=== PATIENT | female | born 1945 | race Caucasian/White ===

== ENCOUNTER 2016-11-26 09:51 | Outpatient (CLI) ==
--- NOTE | 2016-11-26 10:41 | CT ---
EXAM: CT chest without contrast HISTORY: Chest wall pain on the right post fall 1 week prior. Patient with history of cholecystecto my COMPARISON: Chest x-ray 05/23/2013 TECHNIQUE: Serial axial images of the chest were obtained from the lung apices to the upper abdomen without contrast. These were viewed in multiple planes. 3-D reconstructions of the bones were perfor med. FINDINGS: The thyroid is normal. The visualized vessels are unremarkable without aneurysm or stenos is. The heart is normal in size without pericardial effusion. There are no pathologically enlarged mediastinal or hilar lymph nodes. Calcified right hilar lymph node is present. There is no pneumothorax or pleural effusion. There is trace ground-glass in the right upper lobe on image 21. There is calcifications in the right lower lobe on image 25. There is mild bibasilar are atelectasis and minimal bronchiectasis. There is a 0.3 cm ground-glass nodule in the right lower lo be on image 34. There is mild consolidation in the lingula. There is a 0.2 cm nodule in the left lo wer lobe on image 27. Osseous structures are unremarkable with no visualized rib fracture or compression abnormality. The soft tissues in the upper abdomen is very limited with evidence of prior cholecystectomy and gastric surgery. IMPRESSION: 1. No CT abnormality or acute cardiopulmonary process to account for patient's symptoms. 2. Scattered small pulmonary nodules are likely postinflammatory with minimal bibasilar atelectasis and bronchiectasis. 3. Sequela of old granulomatous disease. 4. No acute osseous abnormality. 5. Changes of gastric surgery and cholecystectomy in the upper abdomen.
== END 2016-11-26 09:52 | disposition home or self-care (01) ==
LOC: RAD 09:51
PROVIDERS: ATTEND Family Medicine
DX: R07.89 Other chest pain (principal)
CPT/HCPCS: 93005; 93010

== ENCOUNTER 2017-02-14 15:31 | Outpatient (CLI) ==
--- NOTE | 2017-02-14 16:20 | DI ---
EXAM: Chest two view, frontal and lateral views. HISTORY: Cough. COMPARISON: 11/26/2016. FINDINGS: The heart size is normal. Aortic atherosclerotic calcifications present. There is no pul monary vascular congestion. Calcified granulomatous changes noted. Focal scarring in the lingula ag ain noted. Otherwise, the lungs are clear. No pleural effusion or pneumothorax is seen. No acute o sseous abnormality identified. Since the prior study, there has been no significant interval change. IMPRESSION: No acute cardiopulmonary process.
== END 2017-02-14 15:32 | disposition home or self-care (01) ==
LOC: RAD 15:31
PROVIDERS: ATTEND Family Medicine
DX: R05 Cough (principal)

== ENCOUNTER 2017-08-03 06:01 | Inpatient (IN) ==
--- NOTE | 2017-08-03 06:28 | ED.PDOC ---
General Stated Complaint: it hurts to take a deep breathe Time Seen by Physician: 06:10 Mode of Arrival: Wheelchair Information Source: Patient Exam Limitations: No limitations Nursing and Triage Documentation Reviewed and Agree: Yes Reviewed sepsis parameters & appropriate labs ordered?: Yes System Inflammatory Response Syndrome: Not Applicable <MARIANGELCARLOS - Last Filed: 08/03/17 06:45> <JESSICA WONG - Last Filed: 08/03/17 08:18> ED Provider: Dr. JESSICA WONG Chief Complaint: Chest Pain Primary Care Provider: CARLOS THOMPSON Sepsis Protocol: For patient's 13 years and over: Temp is 96.8 and below OR 101 and greater Pulse >90 BPM Resp >20/minute Acutely Altered Mental Status Are patient's symptoms suggestive of a new infection, such as: -Pneumonia -Skin, Soft Tissue -Endocarditis -UTI -Bone, Joint Infection -Implantable Device -Acute Abdominal Infection -Wound Infection -Meningitis -Blood Stream Catheter Infection -Unknown Cardiovascular Complaint Exam - Chest Pain Complaint/Exam Onset: Gradual Duration: 24hrs Symptoms Are: Still present Timing: Intermittent Initial Severity: Moderate Location: Reports: Discrete, Left anterior, Left lateral Character: Reports: Sharp, Stabbing Aggravating: Reports: Deep breaths Alleviating: Reports: None Associated Signs and Symptoms: Denies: Diaphoresis, Nausea, Vomiting, Fever, Palpitations, Cough, Hemoptysis, Back pain, Abdominal pain, Dizziness, Short of air, Calf pain, Calf swelling Related Surgical History: Reports: None History of Healthcare-Acquired Pneumonia: Reports: No AMI/ACS Risk Factors: Reports: Sedentary, Diabetes, Obesity TAD Risk Factors: Reports: Hypertension Prior Care for this Complaint: No Recent Stress Test: No Recent Echo/LV Function: No JVD Present: No Subcutaneous Emphysema Present: No Diminshed Breath Sounds: No Reproducible Chest Wall Pain: No Bilateral Pulses Present: Yes Unequal Pulses Noted: No If Risk Factors for AMI/ACS Consider: EKG, Cardiac Enzymes, Serial Studies, Oxygen, Aspirin Quality Indicator For Non-Traumatic Chest Pain/Syncope: EKG Performed <CARLOS AUGUST - Last Filed: 08/03/17 06:45> Review of Systems - Review Of Systems Constitutional: Reports: No symptoms Eyes: Reports: No symptoms Ears, Nose, Mouth, Throat: Reports: No symptoms Respiratory: Reports: No symptoms Cardiac: Reports: Chest pain GI: Reports: No symptoms : Reports: No symptoms Musculoskeletal: Reports: No symptoms Skin: Reports: No symptoms Neurological: Reports: No symptoms Endocrine: Reports: No symptoms Hematologic/Lymphatic: Reports: No symptoms All Other Systems: Reviewed and Negative <CARLOS AUGUST Last Filed: 08/03/17 06:45> Past Medical History - Past Medical History Previously Healthy: No Endocrine: Reports: DM 2, Dyslipidemia Cardiovascular: Reports: A-Fib Respiratory: Reports: COPD Hematological: Reports: Anemia Gastrointestinal: Reports: None Genitourinary: Reports: CKD Neuro/Psych: Reports: None Musculoskeletal: Reports: Arthritis Cancer: Reports: None Last Menstrual Period: menopausal - Surgical History General Surgical History: Reports: Unknown - Family History Family History: Reports: Unknown - Social History Smoking Status: Former smoker Hx Substance Use: No Alcohol Screening: None - Immunizations Tetanus Shot up to Date: No (unsure) <CARLOS AUGUST Last Filed: 08/03/17 06:45> Physical Exam - Physical Exam Appearance: Well-appearing Pain Distress: Mild Eyes: ESME, EOMI, Conjunctiva clear ENT: Ears normal, Nose normal, Oropharynx normal Neck: Supple Respiratory: Airway patent, Breath sounds clear, Breath sounds equal, Respirations nonlabored Cardiovascular: RRR, Pulses normal, No rub, No murmur GI/: Soft, Nontender, No masses, Bowel sounds normal, No Organomegaly Musculoskeletal: Normal strength, ROM intact, No edema, No calf tenderness Skin: Warm Neurological: Sensation intact Psychiatric: Affect appropriate, Mood appropriate <MARIANGELCARLOS Last Filed: 08/03/17 06:45> Physician Notification - Case Discussed Physician Notified: dr wong Time of Notification: 07:00 <MARIANGELCARLOS Last Filed: 08/03/17 06:45> - Case Discussed Physician Notified: PMD Time of Notification: 08:18 (ADMITT) Admit To: Inpatient <JESSICA WONG Last Filed: 08/03/17 08:18> Critical Care Note - Critical Care Note Total Time (mins): 0 <JESSICA WONG Filed: 08/03/17 08:18> Course - Course Hematology/Chemistry: 08/03/17 06:30 08/03/17 06:30 <JESSICA WONG Filed: 08/03/17 08:18> - Course Orders, Labs, Meds: Lab Review 08/03/17 08/03/17 08/03/17 06:30 06:30 06:30 WBC 9.65 RBC 3.57 L Hgb 7.7 L Hct 28.4 L MCV 79.6 L MCH 21.6 L MCHC 27.1 L RDW Coeff of Claudia 16.8 H Plt Count 305 Immature Gran % (Auto) 0.5 Neut % (Auto) 61.1 Lymph % (Auto) 22.0 [place] % (Auto) 10.5 H Eos % (Auto) 5.4 Baso % (Auto) 0.5 Immature Gran # (Auto) 0.1 Neut # (Auto) 5.9 Lymph # (Auto) 2.1 [place] # (Auto) 1.0 Eos # (Auto) 0.5 Baso # (Auto) 0.1 Hypochromasia 3+ Anisocytosis Not present Microcytosis 1+ PT 19.0 H INR 1.94 D-Dimer (Manual) Sodium 143 Potassium 4.0 Chloride 100 Carbon Dioxide 33 H Anion Gap 14.0 BUN 11 Creatinine 0.79 Estimated GFR (MDRD) 72.00 BUN/Creatinine Ratio 13.92 Glucose 126 H Calcium 9.0 Total Bilirubin 0.4 AST 21 ALT 8 L Alkaline Phosphatase 97 Total Creatine Kinase 34 Troponin I < 0.0100 Total Protein 6.5 Albumin 2.7 L Globulin 3.8 Albumin/Globulin Ratio 0.71 08/03/17 06:30 WBC RBC Hgb Hct MCV MCH MCHC RDW Coeff of Claudia Plt Count Immature Gran % (Auto) Neut % (Auto) Lymph % (Auto) [place] % (Auto) Eos % (Auto) Baso % (Auto) Immature Gran # (Auto) Neut # (Auto) Lymph # (Auto) [place] # (Auto) Eos # (Auto) Baso # (Auto) Hypochromasia Anisocytosis Microcytosis PT INR D-Dimer (Manual) 590.01 Sodium Potassium Chloride Carbon Dioxide Anion Gap BUN Creatinine Estimated GFR (MDRD) BUN/Creatinine Ratio Glucose Calcium Total Bilirubin AST ALT Alkaline Phosphatase Total Creatine Kinase Troponin I Total Protein Albumin Globulin Albumin/Globulin Ratio Orders Category Date Time Status EKG-(ED ONLY) Stat CARDIO 08/03/17 06:03 Completed EKG-(IP & OP ONLY) DAILY CARDIO 08/04/17 06:00 Ordered EKG-(IP & OP ONLY) DAILY CARDIO 08/05/17 06:00 Ordered EKG-(IP & OP ONLY) DAILY CARDIO 08/06/17 06:00 Ordered NEBULIZER TREATMENT Routine CARDIO 08/03/17 08:11 Ordered OXYGEN Routine CARDIO 08/03/17 08:15 Ordered ACTIVITY .Complete BR CARE 08/03/17 08:09 Ordered INTAKE & OUTPUT Q8HR CARE 08/03/17 08:09 Ordered NPO REMINDER: IMAGING ONCE CARE 08/03/17 08:07 Ordered VITAL SIGNS Q4HR CARE 08/03/17 08:09 Ordered REGULAR DIET DIETARY 08/03/17 Lunch Ordered Ore Dressing Engineer [ED TABLE LEVER OPERATOR APPLIED] .ONCE EMERGENCY 08/03/17 06:04 Active IV [ED IV/MEDIPORT/POWERPORT] .ONCE EMERGENCY 08/03/17 06:04 Active BLOOD CULTURE (ED ONLY) Stat LAB 08/03/17 06:30 Received CBC W/ AUTO DIFF DAILY@0600 LAB 08/04/17 06:00 Ordered CBC W/ AUTO DIFF DAILY@0600 LAB 08/05/17 06:00 Ordered CBC W/ AUTO DIFF Stat LAB 08/03/17 06:30 Completed COMPREHENSIVE METABOLIC PANEL DAILY@0600 LAB 08/04/17 06:00 Ordered COMPREHENSIVE METABOLIC PANEL DAILY@0600 LAB 08/05/17 06:00 Ordered COMPREHENSIVE METABOLIC PANEL Stat LAB 08/03/17 06:30 Completed CREATINE KINASE Q8H LAB 08/03/17 14:15 Ordered CREATINE KINASE Q8H LAB 08/03/17 22:15 Ordered CREATINE KINASE Stat LAB 08/03/17 06:30 Completed D-DIMER Stat LAB 08/03/17 06:30 Completed PT WITH INR DAILY@0600 LAB 08/05/17 06:00 Ordered PT WITH INR Stat LAB 08/03/17 06:30 Completed RBC MORPHOLOGY Stat LAB 08/03/17 06:30 Completed TROPONIN I Q8H LAB 08/03/17 14:15 Ordered TROPONIN I Q8H LAB 08/03/17 22:15 Ordered TROPONIN I Stat LAB 08/03/17 06:30 Completed 0.9 % Sodium Chloride [Saline Flush] MEDS 08/03/17 06:04 Active 1 syr IVF PRN PRN Ceftriaxone Sodium [Rocephin] 1 gm MEDS 08/03/17 09:00 Ordered 0.9 % Sodium Chloride [Sodium Chloride] 50 ml IV DAILY Doxycycline Hyclate Inj [Doxy-100] 100 mg MEDS 08/03/17 09:00 Ordered 0.9 % Sodium Chloride [Sodium Chloride] 100 ml IV Q12HR Gabapentin [Neurontin] MEDS 08/03/17 09:00 Ordered 300 mg PO TID Hydrocodone Bit/Acetaminophen [Hooks 7.5-325] MEDS 08/03/17 12:00 Ordered 1 tab PO Q6HR Ipratropium/Albuterol Neb [Duoneb] MEDS 08/03/17 12:00 Ordered 1 vial NEB RTQ6H Methylprednisolone Sod Succ/Pf [Solu-Medrol 125 mg] MEDS 08/03/17 08:10 Stat 125 mg IVP ONCE STA Methylprednisolone Sod Succ/Pf [Solu-Medrol 40 mg] MEDS 08/03/17 09:00 Ordered 40 mg IVP Q12HR Metoprolol Succinate [Toprol Xl] MEDS 08/03/17 09:00 Ordered 50 mg PO DAILY Sodium Chloride 0.9% [Sodium Chloride] 1,000 ml MEDS 08/03/17 08:30 Ordered IV 75 mls/hr Warfarin Sodium [Coumadin] MEDS 08/03/17 17:00 Ordered 3 mg PO QPM CHEST, 2 VIEWS PA & LAT Routine RADS 08/04/17 07:[address] CHEST PE PROTOCOL Stat RADS 08/03/17 08:[address] CHEST W/O CONTRAST Stat RADS 08/03/17 06:05 Completed U/S VENOUS SCAN RADHA LEGS Stat RADS 08/03/17 08:08 Ordered Medications Generic Name Dose Route Start Last Admin Trade Name Freq PRN Reason Stop Dose Admin Hydrocodone Bitart/Acetaminophen 1 tab 08/03/17 12:00 Hooks 7.5-325 PO Q6HR ISMA Albuterol/Ipratropium 1 vial 08/03/17 12:00 Duoneb NEB RTQ6H ISMA Gabapentin 300 mg 08/03/17 09:00 Neurontin PO TID ISMA Ceftriaxone Sodium 1 gm/ 50 mls @ 75 mls/hr 08/03/17 09:00 Sodium Chloride IV DAILY ISMA Sodium Chloride 1,000 mls @ 75 mls/hr 08/03/17 08:30 Sodium Chloride IV .[id number] ISMA Doxycycline Hyclate 100 mg/ 100 mls @ 50 mls/hr 08/03/17 09:00 Sodium Chloride IV Q12HR [facility] Methylprednisolone Sodium Succinate 40 mg 08/03/17 09:00 Solu-Medrol 40 Mg IVP Q12HR [facility] Metoprolol Succinate 50 mg 08/03/17 09:00 Toprol Xl PO DAILY [facility] Non-Formulary Medication 3 mg 08/03/17 17:00 Warfarin Sodium [Coumadin] PO QPM [facility] Sodium Chloride 1 syr 08/03/17 06:04 Saline Flush IVF PRN PRN To flush IV Discontinued Medications Generic Name Dose Route Start Last Admin Trade Name Freq PRN Reason Stop Dose Admin Methylprednisolone Sodium Succinate 125 mg 08/03/17 08:10 Solu-Medrol 125 Mg IVP 08/03/17 08:11 ONCE STA Vital Signs: Temp Pulse Resp BP Pulse Ox 08/03/17 06:02 98.4 F 75 20 105/54 L 90 L JIM Risk Score: Risk Score Odds of by 30D 0 0.1 (0.1-0.2) 1 0.3 (0.2-0.3) 2 0.4 (0.3-0.5) 3 0.7 (0.6-0.9) 4 1.2 (1.0-1.5) 5 2.2 (1.9-2.6) 6 3.0 (2.5-3.6) 7 4.8 (3.8-6.1) Departure <CARLOS AUGUST - Last Filed: 08/03/17 06:45> - Departure Time of Disposition: 10:00 (judith took over care 7 am D DIMERS ELEVATED CT CHEST R/O PE INITATED PT ALSO WILL BE ADMITTED PER PMD) Pt referred to PMD for follow-up: Yes IPMP verified?: No Disposition Discussed With: Patient, Family <JESSICA WONG - Last Filed: 08/03/17 08:18> - Departure Disposition: ADMITTED INPATIENT Discharge Problem: Chest pain Condition: Good Allergies/Adverse Reactions: Allergies meloxicam [From Mobic] Adverse Reaction (Verified 08/03/17 06:12) Difficulty Swallowing Home Medications: Ambulatory Orders Duloxetine HCl [Cymbalta] 60 mg PO DAILY 02/13/13 Gabapentin [Neurontin] 300 mg PO TID 02/13/13 Metoprolol Succinate [Toprol Xl] 50 mg PO DAILY 02/13/13 Tiotropium [place] [Spiriva] 1 cap INH DAILY PRN 02/13/13 Warfarin Sodium [Coumadin] 3 mg PO QPM 02/13/13 Albuterol Sulfate [Proair Hfa] 2 puff IH Q4H PRN 08/03/17 Diphenhydramine HCl [Benadryl] 25 mg PO BEDTIME PRN 08/03/17 Trazodone HCl 50 mg PO DAILY 08/03/17
--- NOTE | 2017-08-03 07:19 | CT ---
EXAM: CT chest without contrast. HISTORY: Left-sided chest pain. Dyspnea. COMPARISON: 11/26/2016. TECHNIQUE: Multiple axial images of the chest were obtained without intravenous contrast. Images we re reformatted in the sagittal and coronal planes. FINDINGS: Evaluation for lymphadenopathy is limited by lack of intravenous contrast. Calcified medi astinal and hilar lymph nodes present. Heart size is normal. Atherosclerotic calcifications present . No pericardial effusion identified. Calcified granulomatous changes are present. Mild emphysematous changes noted bilaterally. Scattered noncalcified pulmonary nodules are stable since the prior study. There is bronchial thickening with some associated thin linear opacities in both lower lobes. There is band-like consolidation along t he left lung fissure in the lingula which is increased since the prior study. No pleural effusion or pneumothorax identified. Limited images of the upper abdomen this should postsurgical changes of the stomach. Small splenic a rtery aneurysms are stable. Degenerative changes present in the spine. IMPRESSION: 1. Bilateral lower lobe bronchial thickening and areas of subsegmental atelectasis likely due to inf ectious/inflammatory process. 2. Band-like consolidation in the lingula has increased since the prior study, possibly due to the s ann process as #1 above. 3. Mild emphysema. 4. Evidence of prior granulomatous disease. 5. Stable noncalcified nodules. 6. Follow-up chest CT 3 months recommended for reassessment.
[2017-08-03] MEDS ORDERED: SOLU-MEDROL 125 MG IVP STA (08:10)
--- NOTE | 2017-08-03 09:44 | CT ---
EXAM: CTA of the chest. History: Chest pain, elevated D-dimer. Comparison: Chest CT 08/03/2017 Technique: Multiplanar CT images through the thorax were obtained following administration of IV cont rast. MIP images and 3-D reconstructions were also provided. Findings: Heart size is upper limits of normal. No thoracic aortic aneurysm. No pathologically enl arged thoracic lymph nodes. No pulmonary arterial filling defects. No change in the bronchial wall t hickening and scattered areas of subsegmental atelectasis. No consolidated pneumonia. Mild emphysem a. No suspicious lung masses or lung nodules. Within the visualized upper abdomen, postsurgical changes of the stomach. The visualized osseous str uctures unchanged with no acute osseous abnormalities identified. Impression: 1. No pulmonary embolism. 2. No change in the bronchial wall thickening and scattered areas of subsegmental atelectasis. Ther e is no consolidated pneumonia.
--- NOTE | 2017-08-03 09:56 | US ---
EXAM: Bilateral lower extremity venous doppler. HISTORY: Bilateral lower extremity pain and swelling. COMPARISON: None available. TECHNIQUE: Multiple grayscale and color doppler images were obtained. FINDINGS: There is normal flow, compressibility and augmentation of flow within the right and left c ommon femoral, greater saphenous, profunda, femoral, popliteal, posterior tibial, anterior tibial and peroneal veins. IMPRESSION: No evidence for right or left lower extremity deep vein thrombosis at the levels examined.
[2017-08-03] MEDS: DUONEB NEB SCH ×3 (11:12→23:45)
[2017-08-03 14:09] VITALS: BMI 44.1
[2017-08-03] MEDS: DOXY-100 100 MG in SODIUM CHLORIDE 100 ML IV SCH ×2 (15:40→21:06)
[2017-08-03] MEDS: TOPROL XL PO SCH (15:41)
[2017-08-03] MEDS: NEURONTIN PO SCH ×3 (15:41→21:06)
[2017-08-03] MEDS: SODIUM CHLORIDE 1,000 ML IV SCH (15:41)
[2017-08-03] MEDS: NORCO 7.5-325 PO SCH ×3 (15:41→23:15)
[2017-08-03] MEDS ORDERED: NON-FORMULARY MEDICATION (Warfarin Sodium [Coumadin] 3 MG) PO SCH (17:00)
[2017-08-03] MEDS: ROCEPHIN 1 GM in SODIUM CHLORIDE 50 ML IV SCH (18:01)
[2017-08-03] MEDS: COUMADIN PO SCH (18:01)
[2017-08-03] MEDS: SOLU-MEDROL 40 MG IVP SCH (21:07)
[2017-08-04] MEDS: DUONEB NEB SCH ×4 (05:00→20:35)
[2017-08-04] MEDS: NORCO 7.5-325 PO SCH ×4 (05:31→23:18)
[2017-08-04] MEDS: NEURONTIN PO SCH ×3 (08:32→21:14)
[2017-08-04] MEDS: ROCEPHIN 1 GM in SODIUM CHLORIDE 50 ML IV SCH (08:32)
[2017-08-04] MEDS: TOPROL XL PO SCH (08:32)
[2017-08-04] MEDS: SODIUM CHLORIDE 1,000 ML IV SCH ×2 (10:15→14:35)
[2017-08-04] MEDS: DOXY-100 100 MG in SODIUM CHLORIDE 100 ML IV SCH ×2 (10:15→21:14)
--- NOTE | 2017-08-04 14:43 | DI ---
Exam: Two views of the chest. Comparison: CT chest performed 08/03/2017. Reason for exam: Cough. FINDINGS: No pneumothorax. The cardiac silhouette is unchanged. Patchy airspace opacities are seen in the right middle lobe and left lung base. Degenerative disease is seen in the thoracic spine. Impression: 1. Air space opacities in the right middle lobe and left lower lobes consistent with atelectasis/pne umonia. 2. No pneumothorax or pleural effusion.
[2017-08-04] MEDS: SOLU-MEDROL 40 MG IVP SCH ×2 (17:21→21:14)
[2017-08-04] MEDS: COUMADIN PO SCH (17:22)
[2017-08-04] MEDS ORDERED: LASIX IVP STA (17:53)
[2017-08-04] MEDS: LASIX ONE ×2 (18:22→18:23)
[2017-08-05] MEDS: DUONEB NEB SCH ×4 (04:45→21:32)
[2017-08-05] MEDS: NORCO 7.5-325 PO SCH ×4 (05:04→23:47)
[2017-08-05] MEDS: PREDNISONE PO SCH (08:51)
[2017-08-05] MEDS: AUGMENTIN 500-125 MG TAB PO SCH ×2 (08:51→20:49)
[2017-08-05] MEDS: NEURONTIN PO SCH ×3 (08:51→20:49)
[2017-08-05] MEDS: TOPROL XL PO SCH (08:51)
[2017-08-05] MEDS ORDERED: VITAMIN B-12 IM STA (15:17)
[2017-08-05] MEDS ORDERED: VENOFER 300 MG in SODIUM CHLORIDE 250 ML IV ONE (15:17)
[2017-08-05] MEDS: COUMADIN PO SCH (17:17)
[2017-08-06] MEDS: DUONEB NEB SCH ×4 (04:44→21:53)
[2017-08-06] MEDS: NORCO 7.5-325 PO SCH ×3 (06:01→17:01)
[2017-08-06] MEDS: AUGMENTIN 500-125 MG TAB PO SCH ×2 (08:28→21:10)
[2017-08-06] MEDS: TOPROL XL PO SCH (08:28)
[2017-08-06] MEDS: NEURONTIN PO SCH ×3 (08:28→21:10)
[2017-08-06] MEDS: PREDNISONE PO SCH (08:28)
[2017-08-06] MEDS ORDERED: VITAMIN B-12 IM STA (09:00)
[2017-08-06] MEDS ORDERED: MILK OF MAGNESIA PO STA (12:38)
[2017-08-06] MEDS: COUMADIN PO SCH (17:02)
[2017-08-07] MEDS: NORCO 7.5-325 PO SCH ×4 (00:11→17:16)
[2017-08-07] MEDS: DUONEB NEB SCH ×3 (04:28→14:09)
[2017-08-07] MEDS: NEURONTIN PO SCH ×2 (08:10→14:39)
[2017-08-07] MEDS: AUGMENTIN 500-125 MG TAB PO SCH (08:10)
[2017-08-07] MEDS: TOPROL XL PO SCH (08:10)
[2017-08-07] MEDS: PREDNISONE PO SCH (08:10)
[2017-08-07 18:21] VITALS: BP 115/48; TEMP 98.2
== END 2017-08-07 19:25 | disposition short-term general hospital (02) | DRG 204 ==
LOC: ED 06:01 → MEDSURG A 10:07 → MEDSURG B 11:28
PROVIDERS: ADMIT Family Medicine; ATTEND Family Medicine
PROC: 30233N1 Transfusion of Nonautologous Red Blood Cells into Peripheral Vein, Percutaneous Approach (ICD-10-PCS; principal; 2017-08-06)
DX: R06.9 Unspecified abnormalities of breathing (principal); J44.1 Chronic obstructive pulmonary disease with (acute) exacerbation; K92.2 Gastrointestinal hemorrhage, unspecified; J96.11 Chronic respiratory failure with hypoxia; N18.3 Chronic kidney disease, stage 3 (moderate); I25.10 Atherosclerotic heart disease of native coronary artery without angina pectoris; I48.91 Unspecified atrial fibrillation; R06.00 Dyspnea, unspecified; I10 Essential (primary) hypertension; E11.8 Type 2 diabetes mellitus with unspecified complications; E78.5 Hyperlipidemia, unspecified; D64.9 Anemia, unspecified; E53.8 Deficiency of other specified B group vitamins; D09.9 Carcinoma in situ, unspecified; M19.90 Unspecified osteoarthritis, unspecified site; Z79.01 Long term (current) use of anticoagulants
CPT/HCPCS: 36415; 36430; 80048; 80053; 82272; 82550; 82607; 82728; 83540; 84484; 85008; 85014; 85018; 85025; 85379; 85610; 86850; 86900; 86922; 87040; 93005; 93010; 94640; 96374; 97802; 99284

== ENCOUNTER 2017-08-07 19:35 | Outpatient (CLI) | END 2017-08-07 19:58 | disposition short-term general hospital (02) | LOC: AMBL 19:35 | PROVIDERS: ATTEND Family Medicine | DX: K92.1 Melena (principal); R53.1 Weakness; J44.9 Chronic obstructive pulmonary disease, unspecified; Z98.84 Bariatric surgery status ==

== ENCOUNTER 2017-10-16 13:04 | Emergency (ER) ==
[2017-10-16] MEDS ORDERED: DUONEB NEB STA (13:15)
[2017-10-16 13:16] VITALS: BP 118/50; TEMP 100; BMI 43.5
[2017-10-16] MEDS ORDERED: SOLU-MEDROL 125 MG IVP STA (13:16)
--- NOTE | 2017-10-16 13:31 | DI ---
EXAM: Chest 1 view. HISTORY: Short of breath COMPARISON: 08/04/2017 FINDINGS: Cardiac silhouette appears upper normal in size there is no pulmonary edema or pleural fl uid. Portable image is slightly underexposed and obtained in lordotic projection There is minimal air space opacity seen peripherally in the left lower lung There is no pleural fluid. Skeletal structur es are unremarkable. IMPRESSION: 1. Cardiac silhouette appears upper normal and stable in size without pulmonary edema or pleural flu id. 2. Minimal airspace opacities seen peripherally in the left lower lung . This may represent some at electasis versus small area of the developing pneumonia.
--- NOTE | 2017-10-16 14:04 | ED.PDOC ---
Procedures - IV/Art Line Insertion Location: lt wrist Type of Line: Peripheral IV Invasive Line/IV Catheter Gauge: 22 Number of Attempts: 1 Blood Return Positive: Yes Invasive Line/IV Flushes Without Difficulty: Yes Conscious Sedation - Pre-op Assessment Weight: 223 lb 1.725 oz Surgical History: appendectomy. tonsillectomy. gallbladder. back surg. sleeve-gastric surgery. both knee replacements - Medical History Past Medical History: Anemia, CHF, A-FIb, COPD, Asthma, GERD, Kidney Disease, Arthritis
--- NOTE | 2017-10-16 14:05 | ED.PDOC ---
Procedures - IV/Art Line Insertion Location: rt wrisr Type of Line: Peripheral IV Invasive Line/IV Catheter Gauge: 22 (blood drawn for lab) Number of Attempts: 1 Blood Return Positive: Yes Invasive Line/IV Flushes Without Difficulty: Yes Conscious Sedation - Pre-op Assessment Weight: 223 lb 1.725 oz Surgical History: appendectomy. tonsillectomy. gallbladder. back surg. sleeve-gastric surgery. both knee replacements - Medical History Past Medical History: Anemia, CHF, A-FIb, COPD, Asthma, GERD, Kidney Disease, Arthritis
--- NOTE | 2017-10-16 14:46 | ED.PDOC ---
General ED Provider: Dr. JESSICA LEDESMA Chief Complaint: Weakness Stated Complaint: ACUTE SHORTNESS OF BREATH Time Seen by Physician: 13:13 Mode of Arrival: Walk-In Information Source: Patient Exam Limitations: No limitations Primary Care Provider: CARLOS THOMPSON Nursing and Triage Documentation Reviewed and Agree: Yes Does patient meet sepsis criteria?: Yes If yes, has appropriate treatment been initiated?: Yes System Inflammatory Response Syndrome: Resp >20/Minute Sepsis Protocol: For patient's 13 years and over: Temp is 96.8 and below OR 101 and greater Pulse >90 BPM Resp >20/minute Acutely Altered Mental Status Are patient's symptoms suggestive of a new infection, such as: -Pneumonia -Skin, Soft Tissue -Endocarditis -UTI -Bone, Joint Infection -Implantable Device -Acute Abdominal Infection -Wound Infection -Meningitis -Blood Stream Catheter Infection -Unknown Respiratory Complaint Exam - Shortness of Air Complaint/Exam Onset/Duration: 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 Denies: Chest pain with cough, Chest pain, Fever, Chills, Diaphoresis, Nasal congestion, Dizziness, Calf pain, Calf swelling, Edema Related History: Reports: Obesity. Denies: Allergic reaction, Recent trauma History of Healthcare-Acquired Pneumonia: No Pulmonary Embolism Risk Factors: Reports: Bedrest Cardiac Risk Factors: Reports: Diabetes Pseudomonas Risk Factors: Reports: Chronic Lung Disease (ON HOME O2 ) Tuberculosis Risk Factors: Reports: Chronic Resp. Faliure Home Oxygen Use: Yes (2L ) Home Peak Flow: Most recent (NONE DONE AT HOME) Recent Stress Test: No Recent Echo/LV Function: No Respiratory Distress: Moderate Stridor Present: No Tracheal Deviation: No Subcutaneous Emphysema: No Accessory Muscle Use: No Retractions: Not Present Diminished Breath Sounds: Yes Prolonged Expiratory Phase: Yes Unable to Speak Full Sentences: No Fatigue: No Leg Swelling: No Marilu's Sign Present: No Grunting Respirations: No Kussmaul Respirations: No Differential Diagnoses: CHF, Pulmonary Edema, COPD Exacerbation, Pneumonia, Pulmonary Embolism, Bronchitis, Bronchospasm, URI Quality Indicators for AMI: EKG in 10min. Quality Indicators for Cardiac Chest Pain: EKG in 10min. Quality Indicator For Non-Traumatic Chest Pain/Syncope: EKG Performed Review of Systems - Review Of Systems Constitutional: Reports: Malaise, Weakness Eyes: Reports: No symptoms Ears, Nose, Mouth, Throat: Reports: No symptoms Respiratory: Reports: Cough, Wheezing Cardiac: Reports: No symptoms GI: Reports: No symptoms : Reports: No symptoms Musculoskeletal: Reports: No symptoms Skin: Reports: No symptoms Neurological: Reports: No symptoms Endocrine: Reports: No symptoms Hematologic/Lymphatic: Reports: No symptoms All Other Systems: Reviewed and Negative Past Medical History - Past Medical History Previously Healthy: No Endocrine: Reports: DM 2, Dyslipidemia Cardiovascular: Reports: A-Fib Respiratory: Reports: COPD Hematological: Reports: Anemia Gastrointestinal: Reports: None Genitourinary: Reports: CKD Neuro/Psych: Reports: None Musculoskeletal: Reports: Arthritis Cancer: Reports: None Last Menstrual Period: N/A - Surgical History General Surgical History: Reports: Unknown - Family History Family History: Reports: Unknown - Social History Smoking Status: Former smoker Hx Substance Use: No Alcohol Screening: None - Immunizations Tetanus Shot up to Date: No Physical Exam - Physical Exam Appearance: Ill-appearing Ill-appearing: Moderate Pain Distress: Moderate Eyes: ESME, EOMI, Conjunctiva clear ENT: Ears normal, Nose normal, Oropharynx normal Respiratory: Rhonchi, Wheezes Cardiovascular: RRR, Pulses normal, No rub, No murmur GI/: Soft, Nontender, No masses, Bowel sounds normal, No Organomegaly Musculoskeletal: Normal strength, ROM intact, No edema, No calf tenderness Skin: Warm, Dry, Normal color Neurological: Sensation intact, Motor intact, Reflexes intact, Cranial nerves intact, Alert, Oriented Psychiatric: Affect appropriate, Mood appropriate Interpretation - Radiology Interpretation Radiology Interpretation By: ED Physician Radiology Results: Negative Re-Evaluation - Re-Evaluation Time of Re-Evaluation: 14:00 Status: Improved Vital Signs Stable: Yes Pain Level: 0 Appearance: NAD Lungs: Clear Skin: Warm and Dry Neuro: Alert and Oriented X3 CV: RRR - Re-Evaluation Time of Re-Evaluation: 14:51 Status: Improved Vital Signs Stable: Yes Pain Level: 0 Appearance: NAD Skin: Warm and Dry Neuro: Alert and Oriented X3 CV: RRR Physician Notification - Case Discussed Physician Notified: PMD Time of Notification: 14:48 (TRANSFER TO ICU) Admit To: Other (TRANSFER TO ICU [facility]) Critical Care Note - Critical Care Note Total Time (mins): 60 Course - Course Hematology/Chemistry: 10/16/17 13:42 10/16/17 13:42 Orders, Labs, Meds: Lab Review 10/16/17 10/16/17 10/16/17 13:15 13:42 13:42 WBC 13.14 H RBC 4.20 Hgb 10.9 L Hct 37.7 MCV 89.8 MCH 26.0 L MCHC 28.9 L RDW Coeff of Claudia 17.8 H Plt Count 230 Immature Gran % (Auto) 0.6 Neut % (Auto) 74.7 Lymph % (Auto) 14.5 [place] % (Auto) 7.7 Eos % (Auto) 2.1 Baso % (Auto) 0.4 Immature Gran # (Auto) 0.1 Neut # (Auto) 9.8 H Lymph # (Auto) 1.9 [place] # (Auto) 1.0 Eos # (Auto) 0.3 Baso # (Auto) 0.1 Puncture Site Rr O2 Saturation 78.0 L ABG pH 7.384 ABG pCO2 61.1 H ABG pO2 45.0 L* ABG HCO3 36.5 H ABG Total CO2 38 H ABG Base Excess 11 H Robert Test + O2 Delivery Device Nc Oxygen Liter Flow 2.00 Sodium 139 Potassium 4.3 Chloride 98 Carbon Dioxide 34 H Anion Gap 11.3 BUN 12 Creatinine 0.92 Estimated GFR (MDRD) 60.00 BUN/Creatinine Ratio 13.04 Glucose 147 H Lactic Acid Calcium 9.0 Total Bilirubin 0.5 AST 44 H ALT 29 Alkaline Phosphatase 89 Total Creatine Kinase 32 Troponin I 0.0230 Total Protein 6.3 Albumin 2.7 L Globulin 3.6 Albumin/Globulin Ratio 0.75 Procalcitonin 10/16/17 10/16/17 13:42 13:55 WBC RBC Hgb Hct MCV MCH MCHC RDW Coeff of Claudia Plt Count Immature Gran % (Auto) Neut % (Auto) Lymph % (Auto) [place] % (Auto) Eos % (Auto) Baso % (Auto) Immature Gran # (Auto) Neut # (Auto) Lymph # (Auto) [place] # (Auto) Eos # (Auto) Baso # (Auto) Puncture Site O2 Saturation ABG pH ABG pCO2 ABG pO2 ABG HCO3 ABG Total CO2 ABG Base Excess Robert Test O2 Delivery Device Oxygen Liter Flow Sodium Potassium Chloride Carbon Dioxide Anion Gap BUN Creatinine Estimated GFR (MDRD) BUN/Creatinine Ratio Glucose Lactic Acid 14.6 Calcium Total Bilirubin AST ALT Alkaline Phosphatase Total Creatine Kinase Troponin I Total Protein Albumin Globulin Albumin/Globulin Ratio Procalcitonin < 0.05 Orders Category Date Time Status ABG DRAW REQUEST DAILY@0600 CARDIO 10/17/17 06:00 Ordered ABG DRAW REQUEST DAILY@0600 CARDIO 10/18/17 06:00 Ordered ABG DRAW REQUEST DAILY@0600 CARDIO 10/19/17 06:00 Ordered ABG DRAW REQUEST DAILY@0600 CARDIO 10/20/17 06:00 Ordered ABG DRAW REQUEST Stat CARDIO 10/16/17 13:15 Completed BIPAP Routine CARDIO 10/16/17 14:03 Ordered EKG-(ED ONLY) Stat CARDIO 10/16/17 13:16 Completed NEBULIZER TREATMENT Stat CARDIO 10/16/17 13:15 Completed ED IV/MEDIPORT/POWERPORT .ONCE EMERGENCY 10/16/17 13:14 Active ABG DAILY@0600 LAB 10/17/17 06:00 Ordered ABG DAILY@0600 LAB 10/18/17 06:00 Ordered ABG DAILY@0600 LAB 10/19/17 06:00 Ordered ABG DAILY@0600 LAB 10/20/17 06:00 Ordered ABG Stat LAB 10/16/17 13:15 Completed BLOOD CULTURE (ED ONLY) Stat LAB 10/16/17 13:42 Received CBC W/ AUTO DIFF Stat LAB 10/16/17 13:42 Completed COMPREHENSIVE METABOLIC PANEL Stat LAB 10/16/17 13:42 Completed CREATINE KINASE Stat LAB 10/16/17 13:42 Completed LACTIC ACID Stat LAB 10/16/17 13:55 Completed PROCALCITONIN Stat LAB 10/16/17 13:42 Completed TROPONIN I Stat LAB 10/16/17 13:42 Completed 0.9 % Sodium Chloride [Saline Flush] MEDS 10/16/17 13:14 Ordered 1 syr IVF PRN PRN Ipratropium/Albuterol Neb [Duoneb] MEDS 10/16/17 13:15 Discontinued 1 vial NEB ONCE STA Methylprednisolone Sod Succ/Pf [Solu-Medrol 125 mg] MEDS 10/16/17 13:16 Discontinued 125 mg IVP ONCE STA CHEST, 1V AP ONLY Stat RADS 10/16/17 13:13 Completed Medications Generic Name Dose Route Start Last Admin Trade Name Freq PRN Reason Stop Dose Admin Sodium Chloride 1 syr 10/16/17 13:14 Saline Flush IVF PRN PRN To flush IV Discontinued Medications Generic Name Dose Route Start Last Admin Trade Name Freq PRN Reason Stop Dose Admin Albuterol/Ipratropium 1 vial 10/16/17 13:15 10/16/17 13:38 Duoneb NEB 10/16/17 13:16 1 vial ONCE STA Administration Methylprednisolone Sodium Succinate 125 mg 10/16/17 13:16 10/16/17 14:00 Solu-Medrol 125 Mg IVP 10/16/17 13:17 125 mg ONCE STA Administration Vital Signs: Temp Pulse Resp BP Pulse Ox 10/16/17 14:05 96 10/16/17 13:11 100 F H 72 22 118/50 L 83 L Departure - Departure Time of Disposition: 03:30 Disposition: TSF SHORT-TRM HOSP Discharge Problem: Acute respiratory failure Qualifiers: Respiratory failure complication: hypoxia and hypercapnia Qualified Code(s): J96.01 - Acute respiratory failure with hypoxia; J96.02 - Acute respiratory failure with hypercapnia Instructions: Chronic Respiratory Failure (DC) Condition: Good Pt referred to PMD for follow-up: Yes IPMP verified?: No Additional Instructions: Please call your Family Physician as soon as possible to schedule a follow-up appointment. Allergies/Adverse Reactions: Allergies meloxicam [From Mobic] Adverse Reaction (Verified 10/16/17 13:16) Difficulty Swallowing Home Medications: Ambulatory Orders Duloxetine HCl [Cymbalta] 60 mg PO DAILY 02/13/13 Gabapentin [Neurontin] 300 mg PO TID 02/13/13 Metoprolol Succinate [Toprol Xl] 50 mg PO DAILY 02/13/13 Warfarin Sodium [Coumadin] 3 mg PO QPM 02/13/13 Albuterol Sulfate [Proair Hfa] 2 puff IH Q4H PRN 08/03/17 Diphenhydramine HCl [Benadryl] 25 mg PO BEDTIME PRN 08/03/17 Trazodone HCl 50 mg PO BEDTIME 08/03/17 Disposition Discussed With: Patient, Family
== END 2017-10-16 15:23 | disposition short-term general hospital (02) ==
LOC: ED 13:04
DX: J96.01 Acute respiratory failure with hypoxia (principal); J96.02 Acute respiratory failure with hypercapnia; I10 Essential (primary) hypertension; E11.9 Type 2 diabetes mellitus without complications; J44.9 Chronic obstructive pulmonary disease, unspecified; I48.91 Unspecified atrial fibrillation; E78.5 Hyperlipidemia, unspecified; N18.9 Chronic kidney disease, unspecified; D63.1 Anemia in chronic kidney disease; Z99.81 Dependence on supplemental oxygen; Z79.01 Long term (current) use of anticoagulants; Z79.899 Other long term (current) drug therapy; R06.02 Shortness of breath; R53.1 Weakness
CPT/HCPCS: 36415; 80053; 82550; 82803; 83605; 84145; 84484; 85025; 87040; 93005; 93010; 94640; 94660; 96360; 96374; 96375; 99285

== ENCOUNTER 2017-11-15 14:35 | Outpatient (CLI) | END 2017-11-15 14:36 | disposition home or self-care (01) | LOC: LAB 14:35 | PROVIDERS: ATTEND Internal Medicine Hematology & Oncology | DX: C18.0 Malignant neoplasm of cecum (principal) | CPT/HCPCS: 36415; 80053; 82378; 82728; 83540; 83550; 85025 ==

== ENCOUNTER 2017-11-19 12:19 | Outpatient (CLI) | END 2017-11-19 12:20 | disposition home or self-care (01) | LOC: LAB 12:19 | PROVIDERS: ATTEND Internal Medicine Hematology & Oncology | DX: E87.5 Hyperkalemia (principal) | CPT/HCPCS: 36415; 84132 ==

== ENCOUNTER 2018-01-11 13:54 | Outpatient (CLI) | END 2018-01-11 13:55 | disposition home or self-care (01) | LOC: LAB 13:54 | PROVIDERS: ATTEND Internal Medicine Hematology & Oncology | DX: E87.5 Hyperkalemia (principal); C18.0 Malignant neoplasm of cecum | CPT/HCPCS: 36415; 80053; 82378; 82728; 83540; 83550; 85025 ==

== ENCOUNTER 2018-04-19 14:08 | Outpatient (CLI) | END 2018-04-19 14:09 | disposition home or self-care (01) | LOC: LAB 14:08 | PROVIDERS: ATTEND Internal Medicine Hematology & Oncology | DX: C18.0 Malignant neoplasm of cecum (principal) | CPT/HCPCS: 36415; 80053; 82378; 82728; 83540; 83550; 85025 ==

== ENCOUNTER 2018-08-04 14:18 | Outpatient (CLI) | END 2018-08-04 14:19 | disposition home or self-care (01) | LOC: LAB 14:18 | PROVIDERS: ATTEND Internal Medicine Hematology & Oncology | DX: C34.90 Malignant neoplasm of unspecified part of unspecified bronchus or lung (principal) | CPT/HCPCS: 36415; 80053; 82378; 82728; 83540; 83550; 85025 ==